=== PATIENT | female | born 1930 | race Caucasian/White ===

== ENCOUNTER 2017-08-26 10:53 | Observation (INO) | payer MEDICARE, BC ==
[~2017-08-26] VITALS: Ht 170.2 cm; Wt 63.2 kg
[~2017-08-26 10:53] MED LIST: AMOXICILLIN 8751 TAB PO; ASPIRIN 32325 MG/TAB PO; B COMPLEX & B121 TAB PO; BETAPACE 120MG120 MG PO; CEFTIN500 MG PO; CEPHALEXIN500 M1 PO; CLOPIDOGREL; COUMADIN 3MG3 MG/TAB PO; COUMADIN4 MG PO; COUMADIN5 MG PO; ELIQUIS 2.5 PO; FAMOTIDINE IV; LEVOTHROID0.1 MG PO; LEVOTHYROXINE0.1 MG PO; LIPITOR 40MG TA40 MG PO; MACROBID 1100 MG/CAP; MULTIPLE VITAMI1 TAB PO; MVI PO; NITROFURANTOIN; NORCO 325 MG-51 TAB PO; PEPCID 20MG TAB20 MG; PREMARIN .3MG0.3 MG PO; PREMARIN0.3 MG PO; SOTALOL80 MG PO; TOPROL XL50 MG PO; VITAMIN C1 TAB PO; VITAMIN D; VITAMIN D1000 IU; XARELTO10 MG; [UNRECOGNIZED DRUG - OTHER]; [UNRECOGNIZED DRUG - OTHER]
[2017-08-26 11:32] LABS: COLLECTION METHOD CATHETER
[2017-08-26 11:41] LABS: MUCOUS Present /lpf; PH 5 (5-8); SQUAMOUS EPITHELIAL None Seen /hpf; URINE APPEARANCE Clear; URINE BACTERIA None Seen /hpf; URINE BILIRUBIN Negative (NEGATIVE); URINE BLOOD 1+ (NEGATIVE); URINE COLOR Yellow; URINE GLUCOSE Negative (NEGATIVE); URINE KETONE 1+ (NEGATIVE); URINE LEUKOCYTE ESTERASE Negative (NEGATIVE); URINE PROTEIN(semi-quant) 1+ (NEGATIVE); URINE UROBILINOGEN Negative (NEGATIVE)
[2017-08-26 11:47] LABS: HEMATOCRIT 39.5 % (37.0-47.0); HEMOGLOBIN 13.6 g/dl (12.5-16.0); MEAN CELL VOLUME 87 fl (80.0-100.0); MEAN CORPUSCULAR HEMOGLOBIN 30 pg (27.0-31.0); MEAN CORPUSCULAR HGB CONC 34 g/dl (33.0-37.0); MEAN PLATELET VOLUME 10.4 fl (7.4-10.4); PLATELET COUNT 225 K/mm3 (130-400); RED BLOOD COUNT 4.53 M/mm3 (4.10-5.30); WHITE BLOOD COUNT 14.5 K/mm3 (4.8-10.8)
[2017-08-26 11:51] LABS: ADD PATHOLOGY DIFF REVIEW NO
[2017-08-26 12:03] LABS: BAND 17 % (0-10); LYMPHOCYTE 6 % (20.0-51.0); NEUTROPHILS 69 % (42.0-75.2); OVALOCYTES 2+; PLATELET ESTIMATE NORMAL (NORMAL); TOTAL CELLS COUNTED 100
[2017-08-26 12:23] LABS: ADJUSTED CALCIUM 9.3 mg/dL (8.4-10.2); ALBUMIN 3.9 gm/dL (3.5-5.0); BILIRUBIN,TOTAL 1.6 mg/dL (0.0-1.0); CALCIUM 9.2 mg/dL (8.4-10.2); CREATININE, serum 0.53 mg/dL (0.52-1.25); POTASSIUM 3.3 mmol/L (3.4-5.0); TOTAL PROTEIN 6.6 gm/dL (6.4-8.2)
[2017-08-26] MEDS ORDERED: B-121000 MCG PO (13:38)
[2017-08-26] MEDS ORDERED: ESTRACE0.1 MG/GM VG (13:44)
[2017-08-26] MEDS ORDERED: FOLIC ACID 40400 MCG PO (13:44)
[2017-08-26] MEDS ORDERED: OMEGA-3 FISH1000 MG PO (13:45)
[2017-08-26] MEDS ORDERED: ZANTAC 150MG T150 MG PO (13:46)
[2017-08-26] MEDS ORDERED: KENALOG DENTAL P5 GM DT (13:46)
[2017-08-26] MEDS ORDERED: ZYRTEC 10MG10 MG PO (13:47)
[2017-08-26] MEDS ORDERED: D3-5050000 IU (13:47)
[2017-08-26] MEDS ORDERED: CEFTIN 250250 MG/TAB PO (13:47)
[2017-08-26] MEDS ORDERED: TIROSINT100 MC1 PO (13:49)
[2017-08-26] MEDS ORDERED: ASPIRIN 81M81 MG/TA2 PO (13:50)
[2017-08-26] MEDS ORDERED: OS-CAL 500 + D1 TAB (13:51)
[2017-08-26] MEDS ORDERED: BETAPACE 120MG120 MG PO (13:52)
[2017-08-26] MEDS ORDERED: MULTI VITAMINS1 TAB PO (13:52)
[2017-08-26] MEDS ORDERED: ELIQUIS 5MG PO (13:52)
[2017-08-26] MEDS ORDERED: VITAMIN D 50,1.25 MG PO (14:39)
[2017-08-26 16:48] VITALS: BP 98/43; PULSE 76
[2017-08-26 17:00] VITALS: BP 89/51; PULSE 89
[2017-08-26 17:02] VITALS: BP 89/51; PULSE 95
[2017-08-26 20:04] VITALS: BP 103/43; PULSE 79; TEMP 97.5
[2017-08-27] VITALS (7 sets, daily range): BP systolic 96–124; BP diastolic 34–67; PULSE 58–76; TEMP 97.2–98.3
[2017-08-27 06:31] LABS: MEAN CELL VOLUME 87 fl (80.0-100.0); MEAN CORPUSCULAR HGB CONC 34 g/dl (33.0-37.0); MEAN PLATELET VOLUME 11.7 fl (7.4-10.4); PLATELET COUNT 208 K/mm3 (130-400); RED BLOOD COUNT 3.39 M/mm3 (4.10-5.30); WHITE BLOOD COUNT 11.9 K/mm3 (4.8-10.8)
[2017-08-27 06:38] LABS: HEMATOCRIT 29.6 % (37.0-47.0); HEMOGLOBIN 10.1 g/dl (12.5-16.0); MEAN CORPUSCULAR HEMOGLOBIN 30 pg (27.0-31.0)
[2017-08-27 06:39] LABS: ADD PATHOLOGY DIFF REVIEW NO
[2017-08-27 06:48] LABS: CALCIUM 8.7 mg/dL (8.4-10.2); CREATININE, serum 0.75 mg/dL (0.52-1.25); POTASSIUM 4.1 mmol/L (3.4-5.0)
[2017-08-27 06:56] LABS: TROPONIN-I 0.03 ng/mL (0.000-0.034)
[2017-08-27 07:41] LABS: BAND 19 % (0-10); LYMPHOCYTE 14 % (20.0-51.0); NEUTROPHILS 65 % (42.0-75.2); TOTAL CELLS COUNTED 100
[2017-08-27 07:42] LABS: OVALOCYTES 1+; PLATELET ESTIMATE NORMAL (NORMAL); POIKILOCYTOSIS 1+
[2017-08-27 07:43] LABS: ANISOCYTOSIS 1+
[2017-08-27] MEDS ORDERED: MULTAQ400 MG PO (14:34)
[2017-08-28 00:05] VITALS: BP 101/36; PULSE 69; TEMP 97.4
[2017-08-28 04:15] VITALS: BP 135/53; PULSE 66; TEMP 98.2
[2017-08-28 06:57] LABS: MEAN CELL VOLUME 90 fl (80.0-100.0); MEAN CORPUSCULAR HGB CONC 33 g/dl (33.0-37.0); MEAN PLATELET VOLUME 11.9 fl (7.4-10.4); PLATELET COUNT 202 K/mm3 (130-400); RED BLOOD COUNT 3.19 M/mm3 (4.10-5.30); WHITE BLOOD COUNT 9.1 K/mm3 (4.8-10.8)
[2017-08-28 07:07] LABS: ADD PATHOLOGY DIFF REVIEW NO; HEMATOCRIT 28.8 % (37.0-47.0); HEMOGLOBIN 9.6 g/dl (12.5-16.0); MEAN CORPUSCULAR HEMOGLOBIN 30 pg (27.0-31.0)
[2017-08-28 07:13] LABS: CALCIUM 8.3 mg/dL (8.4-10.2); CREATININE, serum 0.62 mg/dL (0.52-1.25); MAGNESIUM 1.9 mg/dL (1.6-2.3); POTASSIUM 3.8 mmol/L (3.4-5.0)
[2017-08-28 08:29] VITALS: BP 143/62; PULSE 65; TEMP 97.4
[2017-08-28 09:47] LABS: ANISOCYTOSIS 1+; BAND 11 % (0-10); EOSINOPHIL 1 % (0-4); LYMPHOCYTE 19 % (20.0-51.0); NEUTROPHILS 65 % (42.0-75.2); OVALOCYTES 1+; PLATELET ESTIMATE NORMAL (NORMAL); POIKILOCYTOSIS 1+; TOTAL CELLS COUNTED 100
[2017-08-28 11:56] VITALS: BP 128/63; PULSE 66; TEMP 98.3
== END 2017-08-28 14:45 | disposition home or self-care (01) ==
LOC: COL.ER 10:53 → MEDICAL 13:58
PROVIDERS: Emergency Medicine; Nurse Practitioner Family; Physician Assistant
DX: I48.0 Paroxysmal atrial fibrillation (principal); Z79.01 Long term (current) use of anticoagulants; D72.825 Bandemia; E87.1 Hypo-osmolality and hyponatremia; E03.9 Hypothyroidism, unspecified; E55.9 Vitamin D deficiency, unspecified; I69.320 Aphasia following cerebral infarction; F01.50 Vascular dementia, unspecified severity, without behavioral disturbance, psychotic disturbance, mood disturbance, and anxiety; M54.9 Dorsalgia, unspecified; S40.021A Contusion of right upper arm, initial encounter; M54.6 Pain in thoracic spine; R10.2 Pelvic and perineal pain; Y92.000 Kitchen of unspecified non-institutional (private) residence as the place of occurrence of the external cause; W01.10XA Fall on same level from slipping, tripping and stumbling with subsequent striking against unspecified object, initial encounter; R07.89 Other chest pain; Z79.82 Long term (current) use of aspirin
CPT/HCPCS: 99232-AI; G0008; G0378; G0379; J0696; J7030